=== PATIENT | male | born 1985 | race Caucasian/White ===

== ENCOUNTER 2020-07-14 03:41 | Emergency (ER) | payer BC, SELFPAY ==
--- NOTE | ~2020-07-14 | XR_ITS ---
XR ankle LT min 3V 07/14/2020 04:17 INDICATION: Left ankle pain PROCEDURE: 4 views left ankle COMPARISON: No prior studies for comparison. FINDINGS: Fracture, dislocation or subluxation is not identified. There is mild lateral soft tissue s welling. The soft tissues appear within normal limits. No foreign bodies are identified. IMPRESSION: 1: NO ACUTE BONE OR JOINT ABNORMALITY IDENTIFIED. Reviewed, dictated and finalized at location A. [employer]
[2020-07-14 03:46] VITALS: BP 144/85; PULSE 101; RESP 18; TEMP 36.5; O2SAT 100
--- NOTE | 2020-07-14 04:25 | ED.GENADULT ---
HPI - General Adult General Chief complaint: Extremity Problem,Nontraumatic Stated complaint: Ankle infection? Time Seen by Provider: 07/14/20 03:51 Source: RN notes reviewed History of Present Illness HPI narrative: Patient presents emergency department from home for left ankle pain. Patient states that symptoms began 3 days ago when he was wearing boots at work and the boots rubbed a small wound in the back of his left ankle. He states that since that time is developed some erythema the back of his left ankle over the medial aspect of the ankle with increasing pain he denies any drainage from the wound she denies any fevers states it does hurt to walk on the ankle but he is able to walk on the ankle and ambulated himself back to his room in the emergency department today he denies any other symptoms states he is taken no medications for the pain except he did take his significant other's clindamycin earlier today Related Data Allergies Allergy/AdvReac Type Severity Reaction Status Date / Time No Known Allergies Allergy Verified 07/14/20 03:49 Review of Systems Review of Systems: Narrative: Gen.: Denies fevers or chills Musculoskeletal: See HPI Neuro: Denies numbness, tingling, weakness Skin: Denies rash reports redness Endo: Denies DM PMFSH Past Medical History Medical History (Updated 07/14/20 @ 04:29 by Emanuel Sullivan DO) Patient denies significant medical history Social History Social History (Updated 07/14/20 @ 04:26 by Emanuel Sullivan DO) Smoking status: Current every day smoker Exam Narrative: Exam Narrative: APPEARANCE: No acute distress, nontoxic, resting in bed Eyes: EOMI HEENT: Normocephalic, atraumatic, RESPIRATORY: No respiratory distress MUSCULOSKELETAl: The left ankle has mild tenderness over the medial malleolus and posterior ankle there is a small scabbed over wound over the posterior ankle with erythema and swelling extending over the medial malleolus there is no swelling over the lateral malleolus or the anterior ankle there is no open wounds or drainage there is no fluctuance there is no streaking of erythema up the leg dorsalis pedis pulse 2+ neurovascular intact, full range of motion of the ankle, no calf tenderness NEURO: Awake and alert. Following commands, speech normal, no focal deficits SKIN:: Warm, dry. Normal Color no rash or lesions Course Course Emergency Course: Discussed with patient results of workup and diagnosis. Discussed need for follow-up with primary care, proper use of medication, and reasons to return to the emergency department. Patient understands and agrees to current treatment plan Vital Signs Vital signs: Vital Signs Temperature 97.7 F 07/14/20 03:46 Pulse Rate 101 H 07/14/20 03:46 Respiratory Rate 18 07/14/20 03:46 Blood Pressure 144/85 H 07/14/20 03:46 Pulse Oximetry 100 07/14/20 03:46 Temperature 97.7 F 07/14/20 03:46 Pulse Rate 101 H 07/14/20 03:46 Respiratory Rate 18 07/14/20 03:46 Blood Pressure 144/85 H 07/14/20 03:46 Pulse Oximetry 100 07/14/20 03:46 Medical Decision Making MDM Narrative Medical decision making narrative: Patient with wound to ankle that started from rubbing sounds like a blister 3 days ago from wearing boots there is some erythema at the wound extending to the medial ankle there is no erythema over the lateral or anterior ankle the patient was able to 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
[2020-07-14] MEDS: IBUPROFEN 600 MG TABLET PO (04:57)
[2020-07-14] MEDS: CEPHALEXIN 500 MG CAPSULE PO (04:57)
[2020-07-14 05:03] VITALS: BP 139/80; PULSE 88; RESP 16; TEMP 36.6; O2SAT 97
[2020-07-14 05:12] VITALS: TEMP 36.6
== END 2020-07-14 05:06 | disposition home or self-care (01) ==
LOC: ANHED 04:47
PROVIDERS: Emergency Provider Emergency Medicine
DX: L03.116 Cellulitis of left lower limb (principal); F17.200 Nicotine dependence, unspecified, uncomplicated
CPT/HCPCS: 73610; 99283; A9270